=== PATIENT | female | born 1960 | race Caucasian/White ===

== ENCOUNTER → 2017-06-01 | Outpatient (CLI) | payer MEDICAID | LOC: BRMIMAGING 12:58 | PROVIDERS: ATTEND Nurse Practitioner | DX: R93.8 Abnormal findings on diagnostic imaging of other specified body structures (principal) | CPT/HCPCS: 76856-PO ==

== ENCOUNTER → 2017-10-21 | Outpatient (CLI) | payer MEDICAID | LOC: BRMIMAGING 16:28 | PROVIDERS: ATTEND Nurse Practitioner | DX: Z01.811 Encounter for preprocedural respiratory examination (principal); M16.11 Unilateral primary osteoarthritis, right hip | CPT/HCPCS: 71020-PO ==

== ENCOUNTER → 2019-01-17 | Outpatient (CLI) | payer OTHER | LOC: BRMIMAGING 13:58 | PROVIDERS: ATTEND Internal Medicine Hematology & Oncology | DX: Z12.31 Encounter for screening mammogram for malignant neoplasm of breast (principal); Z80.3 Family history of malignant neoplasm of breast ==